=== PATIENT | male | born 1970 | race Caucasian/White ===

== ENCOUNTER 2018-09-29 16:50 | Emergency (ER) | payer BC ==
--- NOTE | 2018-09-29 17:22 | EDM.PDOC ---
ED HPI GENERAL MEDICAL PROBLEM - General Chief Complaint: Lower Extremity Injury/Pain Stated Complaint: INJURED RT HIP Time Seen by Provider: 09/29/18 17:02 Source of Information: Reports: Patient History Limitations: Reports: No Limitations - History of Present Illness INITIAL COMMENTS - FREE TEXT/NARRATIVE: HISTORY AND PHYSICAL: History of present illness: Patient is a 47-year-old male who presents to the emergency room with complaints of right hip pain. He was trying to get into his vehicle and had slipped and fallen on his right side. This occurred earlier this morning. Since that time he has had pain with flexion at the hip and when straightening to a standing position. He states the pain is mostly to the anterior pelvis. He denies hitting his head or any loss of consciousness. Review of systems: As per history of present illness and below otherwise all systems reviewed and negative. Past medical history: As per history of present illness and as reviewed below otherwise noncontributory. Surgical history: As per history of present illness and as reviewed below otherwise noncontributory. Social history: See social history for further information Family history: As per history of present illness and as reviewed below otherwise noncontributory. Physical exam: General: Well-developed and well-nourished 47 showed male. Alert and oriented. Nontoxic appearing and in no acute distress. HEENT: Atraumatic, normocephalic, pupils equal and reactive bilaterally, negative for conjunctival pallor or scleral icterus, mucous membranes moist, TMs normal bilaterally, throat clear, neck supple, nontender, trachea midline. No drooling or trismus noted. No meningeal signs. No hot potato voice noted. Lungs: Clear to auscultation, breath sounds equal bilaterally, chest nontender. Heart: S1S2, regular rate and rhythm without overt murmur Abdomen: Soft, nondistended, nontender. Negative for masses or hepatosplenomegaly. Negative for costovertebral tenderness. Pelvis: Stable nontender. Genitourinary: No testicular involvement. Limited exam. The groin was assessed, no erythema or soft tissue swelling or hernia noted. Rectal: Deferred. Skin: Intact, warm, dry. No lesions or rashes noted. Extremities: Pain with palpation to the anterior hip. He does have full range of motion. Chronic right shoulder pain and no pain with palpation. Moves all extremities per self. Strong peripheral pulses. Denies any numbness or tingling to distal rodriguez remedies. He is negative for cords or calf pain. Neurovascular unremarkable. Neuro: Awake, alert, oriented. Cranial nerves II through XII unremarkable. Cerebellum unremarkable. Motor and sensory unremarkable throughout. Exam nonfocal. Notes: I did offer the patient some Toradol while he is waiting for x-ray, he declines. Diagnostics: Right hip and pelvis Therapeutics: Declines Prescription: Flexeril #15 Impression: Right hip injury Plan: 1. Rest and ice the extremity as able. 2. Tylenol and/or ibuprofen as needed for pain management. 3. Please follow-up with the orthopedic provider and/or your primary care provider in the next 1-2 days. Return to the ED as needed and as discussed Definitive disposition and diagnosis as appropriate pending reevaluation and review of above. - Related Data Allergies Allergy/AdvReac Type Severity Reaction Status Date / Time No Known Allergies Allergy Verified 09/29/18 17:08 Home Meds: Home Meds . [No Known Home Meds] 09/29/18 [History] Past Medical History - Infectious Disease History Infectious Disease History: Reports: Chicken Pox, Measles, Mumps - Past Surgical History GI Surgical History: Reports: Hernia Repair/Other Social & Family History - Family History Family Medical History: Noncontributory - Tobacco Use Smoking Status *Q: Never Smoker - Recreational Drug Use Recreational Drug Use: No Review of Systems - Review of Systems Review Of Systems: ROS reveals no pertinent complaints other than HPI. ED EXAM, GENERAL - Physical Exam Exam: See Below (See dictation) Course - Vital Signs Last Recorded V/S: Last Vital Signs Temp 97.4 F 09/29/18 17:08 Pulse 68 09/29/18 17:08 Resp 18 09/29/18 17:08 BP 141/81 H 09/29/18 17:08 Pulse Ox 98 09/29/18 17:08 Departure - Departure Time of Disposition: 18:08 Disposition: Home, Self-Care 01 Clinical Impression: Injury of hip, right Qualifiers: Encounter type: initial encounter Qualified Code(s): S79.911A - Unspecified injury of right hip, initial encounter - Discharge Information Instructions: Hip Pain Referrals: PCP,None [Primary Care Provider] - Forms: ED Department Discharge Additional Instructions: The following information is given to patients seen in the emergency department who are being discharged to home. This information is to outline your options for follow-up care. We provide all patients seen in our emergency department with a follow-up referral. The need for follow-up, as well as the timing and circumstances, are variable depending upon the specifics of your emergency department visit. If you don't have a primary care physician on staff, we will provide you with a referral. We always advise you to contact your personal physician following an emergency department visit to inform them of the circumstance of the visit and for follow-up with them and/or the need for any referrals to a consulting specialist. The emergency department will also refer you to a specialist when appropriate. This referral assures that you have the opportunity for follow-up care with a specialist. All of these measure are taken in an effort to provide you with optimal care, which includes your follow-up. Under all circumstances we always encourage you to contact your private physician who remains a resource for coordinating your care. When calling for follow-up care, please make the office aware that this follow-up is from your recent emergency room visit. If for any reason you are refused follow-up, please contact the [facility] Emergency Department at and asked to speak to the emergency department charge nurse. [facility] [address] [place] [id number] [address] [facility] Professional [facility] [address] [place] [address], [address] [place] [address] 1. Rest and ice the extremity as able. 2. Tylenol and/or ibuprofen as needed for pain management. 3. Please follow-up with the orthopedic provider and/or your primary care provider in the next 1-2 days. Return to the ED as needed and as discussed
--- NOTE | 2018-09-29 18:06 | CR ---
INDICATION: Pain after fall COMPARISON: None available. TECHNIQUE: The right hip was examined with PA and frogleg lateral views. An AP view of the pelvis is obtained for a total of three views. FINDINGS: There is no sign of fracture or dislocation of the right hip. The right femoral head and acetabulum are in anatomic alignment. There is no sign of degenerative disease of the right hip. The left hip is unremarkable. The SI joints and pubic symphysis are normal in appearance. The rest of the bony pelvis and soft tissues are normal in appearance. IMPRESSION: NORMAL RIGHT HIP AND PELVIS. Dictated by Chandana Kelley MD @ Sep 29 2018 6:04PM Signed by Dr. Chandana Kelley @ Sep 29 2018 6:06PM
== END 2018-09-29 18:20 | disposition home or self-care (01) ==
LOC: MW.ED 16:50
DX: S79.911A Unspecified injury of right hip, initial encounter (principal); M25.511 Pain in right shoulder; G89.29 Other chronic pain; W17.89XA Other fall from one level to another, initial encounter
CPT/HCPCS: 73502-26-RT; 73502-RT; 99283

== ENCOUNTER 2023-01-30 08:30 | Day surgery (SDC) | payer BC ==
[~2023-01-30 08:30] MED LIST: Acetaminophen 1,000 MG in Premix Bag 1 BAG IV SCH; Albuterol 0.083% 2.5 MG/3 ML Neb Soln NEB PRN; HYDROmorphone 1 MG/ML Syringe IVPUSH PRN; Lactated Ringers 1,000 ML IV SCH; Metoclopramide 10 MG/2 ML SDV IVPUSH PRN; Morphine 2 MG/ML SYRINGE IVPUSH PRN; Naloxone 0.4 MG/ML SDV IVPUSH PRN; Ondansetron 4 MG/2 ML SDV IVPUSH PRN; Pregabalin 75 MG Cap PO SCH; ceFAZolin 2 GM in Sodium Chloride 0.9% 50 ML IV ONE; droPERidol 5 MG/2 ML SDV IVPUSH PRN; fentaNYL 50 MCG/ML SDV IVPUSH PRN
[2023-01-30] MEDS ORDERED: Ropivacaine 0.5% 5 MG/ML 30 ML SDV ONE (08:39)
[2023-01-30] MEDS ORDERED: Rocuronium Bromide 50 MG/5 ML Syringe ONE (09:25)
[2023-01-30] MEDS ORDERED: Sugammadex Sodium 200 MG/2 ML VIAL ONE (09:25)
[2023-01-30] MEDS ORDERED: Ondansetron 4 MG/2 ML SDV ONE (09:25)
[2023-01-30] MEDS ORDERED: Propofol 200 MG/20 ML SDV ONE (09:25)
[2023-01-30] MEDS ORDERED: Lidocaine 2% 5 ML SDV ONE (09:25)
[2023-01-30] MEDS ORDERED: Dexamethasone 4 MG/ML 5 ML MDV ONE (09:25)
[2023-01-30] MEDS ORDERED: fentaNYL 100 MCG/2 ML SDV ONE (09:25)
[2023-01-30] MEDS ORDERED: Water For Injection, Sterile 20 ML ONE (09:32)
[2023-01-30] MEDS ORDERED: Bupivacaine 0.5% 30 ML SDV ONE (09:32)
[2023-01-30] MEDS ORDERED: Bupivacaine 25%/EPINEPHrine/PF 0 ML ONE (09:32)
[2023-01-30] MEDS ORDERED: Ketorolac 30 MG/ML SDV ONE (10:57)
== END 2023-01-30 13:10 | disposition home or self-care (01) ==
LOC: MW.SDS 08:30
PROVIDERS: ATTEND Surgery
DX: K42.9 Umbilical hernia without obstruction or gangrene (principal); K43.9 Ventral hernia without obstruction or gangrene; N28.1 Cyst of kidney, acquired; K57.30 Diverticulosis of large intestine without perforation or abscess without bleeding; Z79.899 Other long term (current) drug therapy
CPT/HCPCS: 49591; A9270; J0131; J1100; J1885; J2405; J2704; J2795; J3010; J3490; J7120